=== PATIENT | male | born 1960 | race Caucasian/White ===

== ENCOUNTER 2020-10-23 07:46 | Day surgery (SDC) | payer MEDICAID ==
[2020-10-22 09:14] VITALS: BMI 29.8
[~2020-10-23 07:46] MED LIST: LACTATED RINGERS 1,000 ML IV SCH; LIDOCAINE 1% (10MG/ML) FOR IV START INTRADERMA PRN
[2020-10-23] MEDS ORDERED: PROPOFOL 10 MG/ML 20 ML VIAL IV ONE (08:18)
[2020-10-23 08:19] VITALS: RESP 16; TEMP 98.5
[2020-10-23 08:55] VITALS: PULSE 78
--- NOTE | 2020-10-23 08:56 | P.PCN ---
Date of Procedure: 10/23/20 Description of Procedure: BRIEF HISTORY: Patient is a 60-year-old male presenting for outpatient colonoscopy for positive Cologuard. No prior colonoscopy. He denies any family history of colon cancer or change in bowels. PROCEDURE PERFORMED: Colonoscopy with polypectomy. PREOPERATIVE DIAGNOSIS: Positive Cologuard, no prior colonoscopy. ESTIMATED BLOOD LOSS: Minimal. IV sedation per Anesthesia. PROCEDURE: After informed consent was obtained, the patient, was brought into the endoscopy unit. IV sedation was administered by Anesthesia under continuous monitoring. Digital rectal examination was normal. Initially the Olympus CF-190 flexible video colonoscope was then inserted in the rectum, gradually advanced into the cecum without any difficulty. Careful examination was performed as the scope was gradually being withdrawn. Ileocecal valve and the appendiceal orifice were visualized and appeared normal. Prep was excellent. Mucosa of the cecum, ascending colon, transverse colon, descending colon, sigmoid colon, and rectum appeared normal, with a few scattered diverticula noted in the sigmoid colon. The patient had 2 flat polyps measuring 12 mm and 6 mm in size removed with cold snare polypectomy from the ascending colon and transverse colon respectively. The patient had 2 diminutive polyps were removed to 2 mm in size removed from the sigmoid colon and rectum with cold forcep polypectomy.. Retroflexion was performed in the rectum and no lesions were seen. The patient tolerated the procedure well. IMPRESSION: 2 flat polyps removed with cold snare polypectomy from the ascending colon and transverse colon. 2 diminutive polyps removed from the sigmoid colon and rectum with cold forcep polypectomy. Mild sigmoid diverticulosis. RECOMMENDATIONS: Findings of this examination were discussed with the patient and his family. Okay to resume diet. Okay to resume medications. Await pathology from polypectomies. Recommend repeat colonoscopy in 3 years pending pathology from polypectomy.
[2020-10-23 09:14] VITALS: BP 115/74
== END 2020-10-23 09:32 | disposition home or self-care (01) ==
LOC: ORWHC2ENDO 07:46
PROVIDERS: ATTEND Internal Medicine
DX: D12.2 Benign neoplasm of ascending colon (principal); D12.3 Benign neoplasm of transverse colon; D12.5 Benign neoplasm of sigmoid colon; K62.1 Rectal polyp; K57.30 Diverticulosis of large intestine without perforation or abscess without bleeding; E78.5 Hyperlipidemia, unspecified; J44.9 Chronic obstructive pulmonary disease, unspecified; Z87.891 Personal history of nicotine dependence; K21.9 Gastro-esophageal reflux disease without esophagitis; Z97.2 Presence of dental prosthetic device (complete) (partial); Z79.82 Long term (current) use of aspirin; Z79.51 Long term (current) use of inhaled steroids; Z79.899 Other long term (current) drug therapy
CPT/HCPCS: 88305; 45380; 45385; J2704

== ENCOUNTER → 2024-01-06 | Outpatient (CLI) | payer BC ==
--- NOTE | 2024-01-06 09:05 | CTL ---
EXAMINATION TYPE: CT Low Dose Lung DATE OF EXAM ORDERED: 01/06/2024 HISTORY: . Lung cancer screening CT DLP: 110.[address] CTDI: 2.7 mGy Automated exposure control for dose reduction was used. SCREENING VISIT: Initial COMPARISON: None TECHNIQUE: Low dose computed tomography scan was performed through the chest at 1 mm thick sections a nd reconstructed images in the coronal plane at [address] DIAGNOSTIC QUALITY: Satisfactory FINDINGS: LUNG NODULES: None. LUNGS: COPD: Severity: Moderate Fibrosis: Severity: None Lymph nodes: None Other findings: None RIGHT PLEURAL SPACE: Effusion: None Calcification: None Thickening: None Pneumothorax: None LEFT PLEURAL SPACE: Effusion: None Calcification: None Thickening: None Pneumothorax: None HEART: Other: Ascending thoracic aorta at the level the main pulmonary artery measures 4.0 cm. The main pul monary artery at the bifurcation measures 2.1 cm. Heart Size: Normal Coronary calcification: Moderate Pericardial effusion: None OTHER FINDINGS: Upper abdomen: There is a partially visualized abdominal aortic aneurysm 5.9 cm. Additional workup is recommended. Bony thorax: Normal Supraclavicular region: Normal IMPRESSION: 1. No suspicious changes to suggest primary or metastatic neoplasm. 2. Partially visualized abdominal aortic aneurysm 5.9 cm. Additional workup recommended. FOLLOW UP CT CHEST RECOMMENDATION: 1. Low dose CT chest one year. 2. Ultrasound or abdomen pelvis CT for abdominal aortic aneurysm evaluation. CT LUNG RAD: Lung-Rad 2 Benign Appearance or Behavior [facility], , 01/06/2024 9:02 AM
== END | disposition home or self-care (01) ==
LOC: RADCTMAIN 06:41
PROVIDERS: ATTEND Family Medicine
DX: Z12.2 Encounter for screening for malignant neoplasm of respiratory organs (principal); J44.9 Chronic obstructive pulmonary disease, unspecified; I71.40 Abdominal aortic aneurysm, without rupture, unspecified; Z87.891 Personal history of nicotine dependence
CPT/HCPCS: 71271

== ENCOUNTER → 2024-01-19 | Outpatient (CLI) | payer BC ==
--- NOTE | 2024-01-19 11:00 | US ---
EXAMINATION TYPE: US duplex aorta DATE OF EXAM: 01/19/2024 COMPARISON: CT: 01/06/24 CLINICAL INDICATION: Male, 63 years old with history of R93.[address] of abdomen; AAA seen on CT. Family hx of DVT (2 siblings, uncle) TECHNIQUE: Multiple sonographic images of the abdominal aorta are obtained. FINDINGS: EXAM MEASUREMENTS: Abdominal Aorta: Proximal: 3.2 x 3.4cm Mid: 6.1 x 5.6cm Distal: 3.0 x 3.8cm Bifurcation: Right Iliac: 1.7 x 1.7cm Left Iliac: 1.9 x 1.6cm SLOT MACHINE KEY PERSON NOTES: Aorta appears ectatic throughout abdomen. Iliacs appear dilated. AAA seen at mid a papo measuring 5.6 x 6.1cm . Report was called to referring clinician Harriet Gaytan at 10:54 AM 0204 AM. IMPRESSION: 1. There is a large 6.1 x 5.6 cm abdominal aortic aneurysm with extension into the iliac arteries wit h mild aneurysmal dilation of the bilateral iliac arteries. [facility], , 01/19/2024 10:58 AM
== END | disposition home or self-care (01) ==
LOC: RADUSWWP 09:20
PROVIDERS: ATTEND Family Medicine
DX: R93.5 Abnormal findings on diagnostic imaging of other abdominal regions, including retroperitoneum
CPT/HCPCS: 93979

== ENCOUNTER → 2024-02-02 | Outpatient (CLI) | payer BC ==
[2024-02-02 16:25] LABS: African American GFR (CKD) >90 (>60 ml/min/1.73 sqM); Blood Urea Nitrogen 15 mg/dL (9-20); Non-African American GFR(CKD) >90 (>60 ml/min/1.73 sqM)
--- NOTE | 2024-02-04 08:49 | CT ---
EXAMINATION TYPE: CT angio abdomen pelvis DATE OF EXAM: 02/02/2024 COMPARISON: Ultrasound 01/19/2024 INDICATION: Abdominal aneurysm found on US DLP: 576.3 mGycm, Automated exposure control for dose reduction was used. CONTRAST: 100ml mL of Isovue 370. Study performed without Oral Contrast TECHNIQUE: Axial images were obtained from above the diaphragm to the pubic rami in the axial plane a t 5 mm thick sections. Reconstructed images are reviewed on the computer in the coronal plane. Thre e-D reconstructed images through the aorta are performed on separate computer doctor of naprapathic medicine.. FINDINGS: Aorta: Vascular calcifications within the aorta. The distal descending thoracic aorta appears unremar kable within the [id number]. Celiac axis and superior mesenteric artery origins appear normal. The re may be some narrowing of the right renal artery. Left renal artery origin is without obvious steno sis. Beginning essentially 1 to 2 mm below the left renal artery aneurysmal dilatation of the aorta i s evident. Maximal AP diameter is 5.7 cm. The transverse dimension at this level is 4.5 cm. At the le asael of the bifurcation the AP diameter is 3.6 cm. This extends into the proximal common iliac arterie s measuring 2.7 cm on the right and 1.7 cm on the left. Distal common iliac artery measures 1.9 cm an d on the right measures 0.4 cm. Internal and external iliac vessels are patent without aneurysmal dil atation. Tortuosity of the external iliacs are evident. Common femoral arteries have atherosclerotic calcification which may be greater on the right. Profunda femoris and superficial femoral arteries vi sualized on the left are patent. The superficial and profundus arteries on the right appear to be out of the field of view. Limited CT sections are obtained the lung bases. The lung bases are clear. CT ABDOMEN: There is a periumbilical hernia containing mesenteric 1.5 cm. No loops of bowel involved. Liver: Normal Spleen: Normal Pancreas: Normal Adrenal glands: The adrenal glands are normal. Gallbladder: Normal Kidneys: No masses are evident. No hydronephrosis is present. No cysts are present. No renal stone s are evident. Inferior vena cava: Normal. CT PELVIS: Loops of bowel within the abdomen and pelvis are normal. The study is without oral contrast limit ing bowel evaluation. Appendix: Normal as visualized. Urinary bladder: Normal. Genitourinary structures: Prostate is prominent Osseous structures: No suspicious lytic or sclerotic lesions. Degenerative disc change present L5-S1. There is grade 1 approaching grade 2 spondylolisthesis of L5 on S1. Spondylolysis of L5 is evident. Posterior disc space narrowing is present L4-5. Mild diffuse disc space narrowing superiorly remainin g lumbar spine IMPRESSION: 1. 5.7 AP by 4.5 cm transverse dimension abdominal aortic aneurysm beginning essentially at the left renal artery extending into the common iliac vessels terminating in the internal and external iliac arteries. 2. Grade 1-2 spondylolisthesis of L5 on S1 with spondylolysis at L5. [facility], , 02/04/2024 8:47 AM
== END | disposition home or self-care (01) ==
LOC: RADCTMAIN 15:47
PROVIDERS: ATTEND Surgery
CPT/HCPCS: 36415; 74174; 82565; 84520

== ENCOUNTER → 2024-03-28 | Outpatient (CLI) | payer BC ==
[2024-03-28 10:23] LABS: African American GFR (CKD) >90 (>60 ml/min/1.73 sqM); Blood Urea Nitrogen 15 mg/dL (9-20); Non-African American GFR(CKD) >90 (>60 ml/min/1.73 sqM)
--- NOTE | 2024-03-28 11:47 | CT ---
EXAMINATION TYPE: CT angio abdomen pelvis CT DLP: 862.7 mGycm, Automated exposure control for dose reduction was used. DATE OF EXAM: 03/28/2024 11:14 AM COMPARISON:CTA abdomen and pelvis 02/02/2024, ultrasound duplex aorta 01/19/2024. CLINICAL INDICATION:Male, 63 years old with history of I71.4 AAA; F/U AAA REPAIR TECHNIQUE: Multiple thin slice sub-millimeter images were obtained through the abdomen and pelvis bef ore and after administration of contrast. Patient was given Isovue 370, 100 cc intravenously. 3-D r econstructed images and maximum intensity projection images were obtained of the abdominal aorta and its branches. FINDINGS: CTA Abdomen and pelvis: Atherosclerotic calcification of the aorta and its branches. Postsurgical unique nges from aortobiiliac stent graft beginning at the hiatus. The [place] aneurysm sac now measures 4.8 x 4.6 cm. Previously measured 5.1 x 4.7 cm. No evidence for intramural hematoma or dissection. No tona dence for endoleak. The left common carotid artery measures up to 2.0 cm and the right common hepatic artery measures up to 2.4 cm again. The origins of the superior mesenteric artery, renal arteries, a nd celiac axis are patent. Poor visualization of the origin of the fear mesenteric artery. The remain ing portions are opacified. The internal and external iliac arteries are patent with mild atheroscler otic plaquing. The bilateral common femoral arteries are patent with mild atherosclerotic plaque. VISCERA: The liver, spleen, adrenal glands, kidneys, pancreas, and gallbladder are not optimally enha nced due the arterial phase utilized. LIVER: Unremarkable GALLBLADDER AND BILE DUCTS: Cholelithiasis. No biliary dilatation. PANCREAS: Unremarkable. SPLEEN: Unremarkable. ADRENAL GLANDS: Unremarkable. KIDNEYS AND URETERS: No evidence of hydronephrosis or renal calculus. The ureters are unremarkable. PELVIS BLADDER: Unremarkable REPRODUCTIVE: Prostate is enlarged in size measuring 5.2 cm in transverse dimension. ABDOMEN & PELVIS STOMACH AND BOWEL: Stomach and duodenum are unremarkable. Scattered sigmoid diverticulosis without ev idence for acute diverticulitis. No evidence of bowel obstruction. PERITONEUM: No evidence of pneumoperitoneum or free fluid. MUSCULOSKELETAL: No acute osseous abnormalities. Degenerative changes of the SI joints with anterior bridging. Grade 2 anterolisthesis of L5 on S1 with bilateral pars defects. Multilevel degenerative di sc disease. LYMPH NODES: No evidence for lymphadenopathy. SOFT TISSUE/ABDOMINAL WALL: Small fat filled umbilical hernia. LOWER CHEST: Left lower lobe 5 mm pulmonary nodule (series 6, image 11). Bilateral lower lobe linear atelectasis IMPRESSION 1. Postsurgical changes from aortobiiliac stent graft without evidence for endoleak. 2. Cholelithiasis. 3. Sigmoid diverticulosis without evidence for acute diverticulitis. 4. Grade 2 anterolisthesis of L5 and S1 with bilateral pars defects. 5. Prostatomegaly. 6. Left lower lobe 5 mm pulmonary nodule redemonstrated. In a low risk patient, no follow-up is olu mmended. In a high-risk patient consider optional CT chest in 12 months. [facility], , 03/28/2024 11:45 AM
== END | disposition home or self-care (01) ==
LOC: RADCTMAIN 09:28
PROVIDERS: ATTEND Surgery
DX: I71.40 Abdominal aortic aneurysm, without rupture, unspecified (principal); K80.20 Calculus of gallbladder without cholecystitis without obstruction; K57.30 Diverticulosis of large intestine without perforation or abscess without bleeding; N40.0 Benign prostatic hyperplasia without lower urinary tract symptoms; R91.1 Solitary pulmonary nodule
CPT/HCPCS: 82565; 84520; 36415; 74174; Q9967